=== PATIENT | male | born 1945 | race Caucasian/White ===

== ENCOUNTER 2022-03-31 19:33 | Emergency (ER) | payer MEDICARE, BC ==
[2022-03-31] MEDS ORDERED: Ketorolac 30 MG/ML SDV IVPUSH ONE (20:17)
[2022-03-31] MEDS ORDERED: Sodium Chloride 0.9% 10 ML Syringe FLUSH PRN ×2 (20:17→20:18)
[2022-03-31] MEDS ORDERED: Sodium Chloride 0.9% 1,000 ML IV STA (20:17)
[2022-03-31 21:11] LABS: ESTIMATED GFR 34 mL/min (>60)
[2022-03-31 22:27] LABS: CORONAVIRUS COVID-19 NAA NEGATIVE (NEGATIVE)
== END 2022-03-31 23:11 | disposition home or self-care (01) ==
LOC: JD.ED 19:33
DX: R50.9 Fever, unspecified (principal); I10 Essential (primary) hypertension; Z87.891 Personal history of nicotine dependence; Z20.822 Contact with and (suspected) exposure to COVID-19; Z79.899 Other long term (current) drug therapy; Z79.82 Long term (current) use of aspirin
CPT/HCPCS: 0241U; 36415; 71045; 80053; 81003; 83605; 85025; 85610; 86140; 87040; 96361; 96374; 99284; J1885; J3490; J7030; U0002